=== PATIENT | female | born 1975 | race Caucasian/White ===

== ENCOUNTER 2017-07-17 19:36 | Emergency (ER) | payer BC, OTHER ==
[~2017-07-17] VITALS: Ht 162.6 cm; Wt 69.0 kg
[~2017-07-17 19:36] MED LIST: NO MEDS
[2017-07-17 19:41] VITALS: Ht 162.6 cm; Wt 69.0 kg
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
[2017-07-18 01:21] VITALS: BP 128/85; PULSE 67; RESP 20; TEMP 98.7
== END 2017-07-18 01:22 | disposition home or self-care (01) ==
LOC: FTE 19:36
DX: S02.31XA Fracture of orbital floor, right side, initial encounter for closed fracture (principal); R51 Headache; X58.XXXA Exposure to other specified factors, initial encounter; Y92.9 Unspecified place or not applicable
CPT/HCPCS: 70450; 70480; Z7502